=== PATIENT | female | born 1955 | race Caucasian/White ===

== ENCOUNTER 2017-04-30 11:11 | Emergency (ER) | payer OTHER ==
[2017-04-30 11:58] VITALS: BP 146/75
--- NOTE | 2017-04-30 12:10 | UC ---
Throat Pain/Nasal Ab HPI - HPI Summary HPI Summary: Pt presents with sinus pain/pressure/congestion for the last 10 days. Over the last 2 days has had a lot of post nasal drip and throat irritation. Has been taking mucinex OTC with no relief. Her is on immunosuppressives and she is very worried that she will get him sick as well. Denies fever, chills, cough , SOB, chest pain, abdominal pain. - History of Current Complaint Chief Complaint: UCRespiratory Stated Complaint: SINUS COMPLAINT Time Seen by Provider: 04/30/17 12:10 Hx Obtained From: Patient Severity: Mild Pain Intensity: 2 Pain Scale Used: 0-10 Numeric - Allergies/Home Medications Allergies/Adverse Reactions: Allergies Allergy/AdvReac Type Severity Reaction Status Date / Time No Known Allergies Allergy Verified 04/30/17 11:58 Home Medications: Home Medications Calcium Carbonate [Calcium/C/D] 1 chw PO EVERY OTHER DAY 04/30/17 [History Confirmed 04/30/17] Cod Liver Oil 1 cap PO EVERY OTHER DAY 04/30/17 [History Confirmed 04/30/17] Folic Acid TAB* [Folvite TAB*] 1 mg PO DAILY 04/30/17 [History Confirmed ] Zinc 50 mg PO DAILY 04/30/17 [History Confirmed 04/30/17] guaiFENesin [Mucinex] 600 mg PO BID 04/30/17 [History Confirmed 04/30/17] PMH/Surg Hx/FS Hx/Imm Hx Previously Healthy: Yes - Surgical History Surgical History: Yes Surgery Procedure, Year, and Place: 1987 ECTOPIC SURGERY, [facility] [place]. 1982- 1988 DILATION AND CURETTAGE X 3, [facility] [place]. 03/06/2013 COLONOSCOPY, [facility] [place]. partial hysterectomy - Family History Known Family History: Positive: Hypertension - Social History Lives: With Family Alcohol Use: Rare Substance Use Type: None Smoking Status (MU): Light Every Day Tobacco Smoker Type: Cigarettes Amount Used/How Often: 1/2 PPD Length of Time of Smoking/Using Tobacco: 40 YEARS Have You Smoked in the Last Year: Yes Review of Systems Constitutional: Negative Skin: Negative Eyes: Negative ENT: Sore Throat, Nasal Discharge, Sinus Congestion, Sinus Pain/Tenderness Respiratory: Negative Cardiovascular: Negative Gastrointestinal: Negative Neurological: Negative Psychological: Negative All Other Systems Reviewed And Are Negative: Yes Physical Exam - Summary Physical Exam Summary: GENERAL: Mildly ill appearing. NAD. WDWN HEENT: NC/AT. Conjunctiva clear without inflammation or discharge. TMs intact , no bulging, erythema, or edema. Nasal mucosa mildly swollen and erythematous with clear discharge. TTP maxillary sinus. Posterior oropharynx without exudates , erythema, or tonsillar enlargement. Uvula midline. NECK: Supple without lymphadenopathy CHEST: CTAB. No r/r/w. No accessory muscle use. Breathing comfortably and in no distress. CV: RRR. Without m/r/g. Pulses intact. SKIN: No rash or erythema noted. NEURO: Alert. CN II-XII grossly intact. PSYCH: Age appropriate behavior. Triage Information Reviewed: Yes Vital Signs: Initial Vital Signs Temp 98.6 F 04/30/17 11:53 Pulse 77 04/30/17 11:53 Resp 16 04/30/17 11:53 BP 146/75 04/30/17 11:53 Pulse Ox 98 04/30/17 11:53 Throat Pain/Nasal Course/Dx - Course Course Of Treatment: Sinusitis. Pt is requesting a zpak as she says amoxicillin does not work for her. - Differential Dx/Diagnosis Provider Diagnoses: Sinusitis Discharge - Sign-Out/Discharge Documenting (check all that apply): Discharge - Discharge Plan Condition: Stable Disposition: HOME Prescriptions: Azithromycin TAB* [Zithromax TAB (Z-ALEJANDRA) 250 mg #6 tabs] 2 tab PO .TODAY, THEN 1 DAILY #1 alejandra Patient Education Materials: Sinusitis (ED) Referrals: Brit Goodman MD [Primary Care Provider] - Additional Instructions: If you develop a fever, shortness of breath, chest pain, new or worsening symptoms - please call your PCP or go to the ED. Your blood pressure was high at todays visit. Please see your primary provider within 4 weeks for recheck and re-evaluation. - Billing Disposition and Condition Condition: STABLE Disposition: HOME
== END 2017-04-30 12:30 | disposition home or self-care (01) ==
LOC: UCEAST 11:11
DX: J32.9 Chronic sinusitis, unspecified (principal); F17.210 Nicotine dependence, cigarettes, uncomplicated
CPT/HCPCS: 99212; G0463

== ENCOUNTER 2017-05-21 10:19 | Emergency (ER) | payer OTHER ==
[2017-05-21 10:48] VITALS: BP 145/75
[2017-05-21] MEDS ORDERED: Albuterol/Ipratropium NEB.SOL* Albuterol 2.5 MG/Ipratropium 0.5 MG 3 ML INH ONE (11:50)
--- NOTE | 2017-05-21 11:50 | UC ---
Respiratory Complaint HPI - HPI Summary HPI Summary: Patient comes to urgent care today with chief complaint of coughing for the past 10 days. Notices wheezing in her chest. Also has some minor sore throat and earache and head congestion. Patient denies fever. Patient denies illness exposures - History of Current Complaint Chief Complaint: UCGeneralIllness Stated Complaint: CONGESTED Time Seen by Provider: 05/21/17 11:44 Hx Obtained From: Patient Hx Last Menstrual Period: na ?: No Onset/Duration: Gradual Onset, Lasting Days - 10, Still Present Timing: Constant Severity Initially: Mild Severity Currently: Mild Pain Intensity: 1 Pain Scale Used: 0-10 Numeric Character: Cough: Nonproductive Aggravating Factors: Nothing Alleviating Factors: Nothing Associated Signs And Symptoms: Positive: URI, Nasal Congestion, Sinus Discomfort - Allergies/Home Medications Allergies/Adverse Reactions: Allergies Allergy/AdvReac Type Severity Reaction Status Date / Time No Known Allergies Allergy Verified 05/21/17 10:47 PMH/Surg Hx/FS Hx/Imm Hx Previously Healthy: Yes - Surgical History Surgical History: Yes Surgery Procedure, Year, and Place: 1987 ECTOPIC SURGERY, [facility] [place]. 1982- 1988 DILATION AND CURETTAGE X 3, [facility] [place]. 03/06/2013 COLONOSCOPY, [facility] [place]. partial hysterectomy - Family History Known Family History: Positive: Hypertension Family History: NON CONTRIBUTORY - Social History Occupation: Retired Lives: With Family Alcohol Use: Rare Substance Use Type: None Smoking Status (MU): Light Every Day Tobacco Smoker Type: Cigarettes Amount Used/How Often: 1/2 PPD Length of Time of Smoking/Using Tobacco: 40 YEARS Have You Smoked in the Last Year: Yes Cessation Counseling: Patient Advised to Stop Review of Systems Constitutional: Negative Skin: Negative Eyes: Negative ENT: Sore Throat, Ear Ache, Sinus Congestion Respiratory: Cough Cardiovascular: Negative Gastrointestinal: Negative Genitourinary: Negative Motor: Negative Neurovascular: Negative Musculoskeletal: Negative Neurological: Negative Psychological: Negative Is Patient Immunocompromised?: No All Other Systems Reviewed And Are Negative: Yes Physical Exam Triage Information Reviewed: Yes Appearance: No Pain Distress, Well-Nourished, Ill-Appearing Vital Signs: Initial Vital Signs Temp 98.8 F 05/21/17 10:42 Pulse 79 05/21/17 10:42 Resp 20 05/21/17 10:42 BP 145/75 05/21/17 10:42 Pulse Ox 98 05/21/17 10:42 Vital Signs Reviewed: Yes Eye Exam: Normal Eyes: Positive: Conjunctiva Clear ENT Exam: Normal ENT: Positive: Normal ENT inspection, Hearing grossly normal, Pharynx normal, Nasal congestion, TMs normal, Uvula midline. Negative: Nasal drainage, Tonsillar swelling, Tonsillar exudate, Trismus, Muffled voice, Hoarse voice, Dental tenderness, Sinus tenderness Dental Exam: Normal Neck exam: Normal Neck: Positive: Supple, Nontender, No Lymphadenopathy Respiratory Exam: Normal Respiratory: Positive: Chest non-tender, No respiratory distress, No accessory muscle use, Wheezing Cardiovascular Exam: Normal Cardiovascular: Positive: RRR, No Murmur, Pulses Normal, Brisk Capillary Refill Musculoskeletal Exam: Normal Musculoskeletal: Positive: Strength Intact, ROM Intact, No Edema Neurological Exam: Normal Neurological: Positive: Alert, Muscle Tone Normal Psychological Exam: Normal Skin Exam: Normal UC Diagnostic Evaluation - Laboratory O2 Sat by Pulse Oximetry: 98 Diagnostic Studies Comment: Influenza A and influenza B are both negative - Radiology Xray Interpretation: No Acute Changes Radiology Interpretation Completed By: ED Physician, Radiologist Re-Evaluation - Re-Evaluation First Eval Change: Improved - Feels better after don't have. Increased aeration noted upon reassessment. Respiratory Course/Dx - Course Course Of Treatment: Albuterol inhaler, short course of prednisone, Zithromax, follow with PCP - Differential Dx/Diagnosis Provider Diagnoses: Acute bronchitis with bronchospasm, elevated blood pressure without diagnosis of hypertension Discharge - Sign-Out/Discharge Documenting (check all that apply): Discharge - Discharge Plan Condition: Stable Disposition: HOME Prescriptions: Albuterol HFA INHALER* [Ventolin HFA Inhaler*] 2 puff INH Q4H PRN #1 mdi PRN Reason: cough/wheeze Azithromycin TAB* [Zithromax TAB (Z-ALEJANDRA) 250 mg #6 tabs] 2 tab PO .TODAY, THEN 1 DAILY #1 alejandra predniSONE TAB* [Deltasone TAB*] 20 mg PO DAILY 6 Days #9 tab Patient Education Materials: How to Use a Metered-Dose Inhaler (ED), Acute Bronchitis (ED), Hypertension (ED), Bronchospasm (ED) Referrals: [facility] [place] PHYSICIAN REFERRAL [Outside] - 1 Week - Billing Disposition and Condition Condition: STABLE Disposition: HOME
--- NOTE | 2017-05-21 12:30 | RAD ---
HISTORY: Cough, fever, wheezing COMPARISONS: July 30, 2005 VIEWS: 4: Frontal dual-energy and lateral views of the chest. FINDINGS: CARDIOMEDIASTINAL SILHOUETTE: The cardiomediastinal silhouette is normal. ALLEN: The allen are normal. PLEURA: The costophrenic angles are sharp. No pleural abnormalities are noted. LUNG PARENCHYMA: The lungs are clear. ABDOMEN: The upper abdomen is clear. There is no subphrenic gas. BONES AND SOFT TISSUES: No bone or soft tissue abnormalities are noted. OTHER: None. IMPRESSION: NO ACTIVE CARDIOPULMONARY DISEASE.
== END 2017-05-21 12:45 | disposition home or self-care (01) ==
LOC: UCEAST 10:19
DX: J20.9 Acute bronchitis, unspecified (principal); R03.0 Elevated blood-pressure reading, without diagnosis of hypertension; F17.210 Nicotine dependence, cigarettes, uncomplicated
CPT/HCPCS: 71046; 87502; 99212; A9270-GY; G0463

== ENCOUNTER 2019-04-19 08:39 | Day surgery (SDC) | payer MEDICARE, OTHER ==
[~2019-04-19 08:39] MED LIST: Acetaminophen TAB* 325 MG PO PRN; Buffered Lidocaine 1% SYRIN* 1 ML/SYRINGE INTRADERM ONE
[2019-04-19] MEDS ORDERED: Lidocaine 2% w/ EPI 1:200,000* 20 ML SDV VIAL ONE (09:55)
[2019-04-19] MEDS ORDERED: Povidone Iodine 5% OPTH* 30 ML BTL ONE (09:55)
[2019-04-19] MEDS ORDERED: Lidocaine 1% MPF ** 5 ML VIAL ONE (09:55)
[2019-04-19] MEDS ORDERED: Proparacaine 0.5% OPHTH.SOL* 15 ML BTL ONE (09:55)
[2019-04-19] MEDS ORDERED: acetaZOLAMIDE TAB* 250 MG ONE (09:55)
[2019-04-19] MEDS ORDERED: Neomycin/Polymy/Dex OPTH.SUSP* MAXITROL 0.1% 5 ML ONE (09:55)
[2019-04-19] MEDS ORDERED: Ketorolac 0.5% OPHTH (NF) 0.5 % 5 ML BTL ONE (09:55)
[2019-04-19] MEDS ORDERED: Phenylephrine OPHTH SOL 2.5%* 2 ML ONE (09:55)
[2019-04-19] MEDS ORDERED: Cyclopentolate 1% OPTH.SOL* 2 ML BTL ONE (09:55)
[2019-04-19 11:48] VITALS: BP 151/77
--- NOTE | 2019-04-19 17:00 | OP ---
DATE OF OPERATION: 04/19/2019 [facility] DATE OF : 1955. SURGEON: Frankie Moreno M.D. PREOPERATIVE DIAGNOSIS: Cataract left eye. POSTOPERATIVE DIAGNOSIS: Cataract left eye. OPERATIVE PROCEDURE: Extracapsular cataract extraction with intraocular lens implant left eye. DESCRIPTION OF PROCEDURE: The patient was brought to the operating room after being given 1/2% Alcaine with epinephrine drops in the preoperative area. The eye was prepped and draped in the usual sterile fashion. Sterile drape and eyelid speculum were placed. Again, topical 1/2% Alcaine with epinephrine was given. A paracentesis incision was made at the 3 o'clock position with the No.75 blade. Clear cornea incision 2.2 x 2.2-mm was created at the 6 o'clock position starting at the anterior limbus using the 2.2-mm keratome. The anterior chamber was irrigated with 0.4 mL of 1% non-preservative intracameral lidocaine and filled with DisCoVisc. A capsulorrhexis was completed using the cystotome and the Utrata forceps. Hydrodissection was performed with balanced salt solution. The lens nucleus was removed with the Phacoemulsification handpiece without incident. Cortex was removed with the irrigation-aspiration handpiece. The capsular bag was re-inflated using DisCoVisc and an [id number] 14.5 implant was inserted with the shooter, oriented to the 167 degree meridian. Horizontal reference servin were made with the patient in the seated position in the preoperative area. All measurements confirmed with ORA. The irrigation- aspiration handpiece was used to remove all residual DisCoVisc. The eye was refilled with balanced salt solution and the wound checked and found to be watertight. Topical Maxitrol drops were given. [id number]/[facility] #: [id number] [facility]ITAL[facility]
== END 2019-04-19 11:40 | disposition home or self-care (01) ==
LOC: OREAST 08:39
PROVIDERS: ATTEND Specialist
DX: H25.812 Combined forms of age-related cataract, left eye (principal); H43.813 Vitreous degeneration, bilateral
CPT/HCPCS: A9270-GY; V2787